=== PATIENT | male | born 1950 | race Caucasian/White ===

== ENCOUNTER 2019-08-03 08:14 | Inpatient (IN) | payer MEDICARE, BC ==
--- NOTE | 2019-08-01 12:10 | PCM.PREANE ---
<Taylor Zhao - Last Filed: 08/01/19 12:05> Preanesthetic Assessment - Anesthesia/Transfusion/Family Hx Anesthesia History: Prior Anesthesia Without Reaction Family History of Anesthesia Reaction: No Transfusion History: No Prior Transfusion(s) Intubation History: Unknown - Review of Systems Pulmonary: No Symptoms (COPD/quit smoking greater than 40 years ago/asthma: on inhaler) Cardiovascular: No Symptoms (history of elevated BP), Dyspnea on Exertion Neurological: No Symptoms (History of lower back pain) Other: Reports: None (History of prostate cancer/history of polycythemia), Thyroid Problems (hypothyroid) - Physical Assessment NPO Status Date: 08/02/19 Vital Signs: Last Vital Signs Temp 36.7 C 08/03/19 08:45 Pulse 79 08/03/19 08:45 Resp 16 08/03/19 08:45 BP 159/93 H 08/03/19 09:30 Pulse Ox 98 08/03/19 08:45 HR: SAT: RESP: BP: TEMP: Height: 1.83 m ASA Class: 3 Mental Status: Alert & Oriented x3 - Lab Values: Laboratory Last Values MRSA (PCR) Negative 07/17/19 12:00 All labs reviewed and noted and within acceptable ranges to proceed with scheduled procedure. - Imaging/EKG Impressions: EKG: NSR rate=90 with first degree AV block CXR: negative PFT's: Moderate airway obstruction, with overinflation noted. - Allergies Allergies/Adverse Reactions: Allergies Allergy/AdvReac Type Severity Reaction Status Date / Time Penicillins Allergy Cannot Verified 08/03/19 09:33 Remember - Anesthesia Plan Pre-Op Medication Ordered: None - Acknowledgements Anesthesia Type Planned: General Anesthesia (Left ISB under US guidance for post operative pain control requested by Dr. Solorzano.) Pt an Appropriate Candidate for the Planned Anesthesia: Yes Alternatives and Risks of Anesthesia Discussed w Pt/Guardian: Yes Pt/Guardian Understands and Agrees with Anesthesia Plan: Yes PreAnesthesia Questionnaire - HOME MEDS Home Medications: Home Meds Albuterol Sulfate [Proair Hfa] 2 puff INH QID PRN 08/02/19 [History] Cholecalciferol (Vitamin D3) [Vitamin D3] 5,000 unit PO DAILY 08/02/19 [History] Levothyroxine Sodium [Synthroid] 150 mcg PO DAILY 08/02/19 [History] - CURRENT (IN HOUSE) MEDS Current Meds: Current Medications Acetaminophen (Tylenol) 975 mg PO ONETIME [facility] [place] Stop: 08/03/19 14:00 Albuterol (Proventil Neb Soln) 2.5 mg NEB ONETIME PRN PRN Reason: bronchodilation Stop: 08/03/19 18:00 Aspirin (Ecotrin) 325 mg PO DAILY BETTE Bisacodyl (Dulcolax) 5 mg PO DAILY PRN PRN Reason: Constipation Cyclobenzaprine HCl (Flexeril) 10 mg PO TID PRN PRN Reason: Spasms Docusate Sodium (Colace) 100 mg PO BID BETTE Famotidine (Pepcid) 20 mg PO Q12H [facility] [place] Lactated Ringer's (Ringers, Lactated) 1,000 mls @ 125 mls/hr IV ASDIRECTED [facility] [place] Stop: 08/03/19 23:00 Last Admin: 08/03/19 09:10 Dose: 125 mls/hr Cefazolin Sodium/Dextrose 2 gm (/ Premix) 50 mls @ 100 mls/hr IV Q8H [facility] [place] Stop: 08/03/19 23:44 Ketorolac Tromethamine (Toradol) 15 mg IVPUSH Q6H PRN PRN Reason: Pain Lidocaine/Sodium Bicarbonate (Buffered Lidocaine 1% In Ns 8.4%) 0.25 ml IDERM ONETIME PRN PRN Reason: Prior to IV Start Stop: 08/03/19 18:00 Last Admin: 08/03/19 09:10 Dose: 0.25 ml Magnesium Hydroxide (Milk Of Magnesia) 30 ml PO BID PRN PRN Reason: Constipation Morphine Sulfate (Morphine) 2 mg IVPUSH Q2H PRN PRN Reason: Breakthrough Pain Naloxone HCl (Narcan) 0.1 mg IVPUSH Q5M PRN PRN Reason: Oversedation Ondansetron HCl (Zofran) 4 mg IVPUSH Q6H PRN PRN Reason: Nausea/Vomiting Oxycodone HCl (Oxycontin) 10 mg PO ONETIME [facility] [place] Stop: 08/03/19 14:00 Oxycodone HCl (Oxycodone) 5 - 10 mg PO Q4H PRN PRN Reason: Pain Pregabalin (Lyrica) 50 mg PO ONETIME [facility] [place] Stop: 08/03/19 14:00 Senna (Senna) 8.6 mg PO BID PRN PRN Reason: Constipation Sodium Chloride (Saline Flush) 10 ml FLUSH ASDIRECTED PRN PRN Reason: Keep Vein Open Stop: 08/03/19 18:00 Discontinued Medications Cefazolin Sodium (Ancef) Confirm Administered Dose 2 gm .ROUTE .STK-MED ONE Stop: 08/03/19 08:19 Fentanyl (Sublimaze) Confirm Administered Dose 100 mcg .ROUTE .STK-MED ONE Stop: 08/03/19 08:18 Fentanyl (Sublimaze) Confirm Administered Dose 100 mcg .ROUTE .STK-MED ONE Stop: 08/03/19 08:24 Lidocaine HCl (Xylocaine-Mpf 1%) Confirm Administered Dose 4 mls @ as directed .ROUTE .STK-MED ONE Stop: 08/03/19 08:19 Lidocaine HCl (Xylocaine-Mpf 1%) Confirm Administered Dose 2 mls @ as directed .ROUTE .STK-MED ONE Stop: 08/03/19 08:20 Midazolam HCl (Versed 1 Mg/Ml) Confirm Administered Dose 2 mg .ROUTE .STK-MED ONE Stop: 08/03/19 08:18 Ondansetron HCl (Zofran) Confirm Administered Dose 4 mg .ROUTE .STK-MED ONE Stop: 08/03/19 08:18 Oxycodone/Acetaminophen (Percocet 325-5 Mg) 1 - 2 tab PO Q4H PRN PRN Reason: Pain Propofol (Diprivan 20 Ml) Confirm Administered Dose 200 mg .ROUTE .STK-MED ONE Stop: 08/03/19 08:18 Rocuronium [place] (Zemuron) Confirm Administered Dose 50 mg .ROUTE .STK-MED ONE Stop: 08/03/19 08:18 <Rhoda Valdez - Last Filed: 08/03/19 10:44> Preanesthetic Assessment - Anesthesia/Transfusion/Family Hx Anesthesia History: Prior Anesthesia Without Reaction Family History of Anesthesia Reaction: No Transfusion History: No Prior Transfusion(s) Intubation History: Unknown - Review of Systems Pulmonary: No Symptoms Cardiovascular: No Symptoms Gastrointestinal: No Symptoms Neurological: No Symptoms (History of lower back pain/Neck pain with extreme extension seeing a chiropractor on occasion. ) Other: Reports: None, Thyroid Problems - Physical Assessment ASA Class: 3 Mental Status: Alert & Oriented x3 Airway Class: Mallampati = 2 Dentition: Reports: Normal Dentition Thyro-Mental Finger Breadths: 3 Mouth Opening Finger Breadths: 3 ROM/Head Extension: Full Lungs: Clear to Auscultation, Normal Respiratory Effort Cardiovascular: Regular Rate, Regular Rhythm - Anesthesia Plan Pre-Op Medication Ordered: Anxiolytic - Acknowledgements Anesthesia Type Planned: General Anesthesia Pt an Appropriate Candidate for the Planned Anesthesia: Yes Alternatives and Risks of Anesthesia Discussed w Pt/Guardian: Yes Pt/Guardian Understands and Agrees with Anesthesia Plan: Yes Additional Comments: Blood pressure is elevated with his preoperative measurements. Repeat checks ordered over 15 minutes BP has trended down to baseline clinic blood pressure 144/89.
[~2019-08-03 08:14] MED LIST: Acetaminophen 325 MG Tab PO SCH; Acetaminophen/oxyCODONE 325-5 MG Tab PO PRN; Albuterol 0.083% 2.5 MG/3 ML Neb Soln NEB PRN; Bisacodyl 5 MG Tab PO PRN; Cyclobenzaprine 10 MG Tab PO PRN; Lactated Ringers 1,000 ML IV SCH; Lidocaine 1%/Sod Bicarbonate in NS 8.4% 1 ML Syringe IDERM PRN; Magnesium Hydroxide 400 MG/5 ML Susp 30 ML Cup PO PRN; Morphine 2 MG/ML Syringe IVPUSH PRN; Naloxone 0.4 MG/ML SDV IVPUSH PRN; Ondansetron 4 MG/2 ML SDV IVPUSH PRN; Pregabalin 25 MG Cap PO SCH; Sennosides 8.6 MG Tab PO PRN; Sodium Chloride 0.9% 10 ML Syringe FLUSH PRN; oxyCODONE ER 10 MG TAB.ER PO SCH
[2019-08-03] MEDS ORDERED: EPINEPHrine 1 MG/ML SDV ONE (08:17)
[2019-08-03] MEDS ORDERED: Midazolam 1 MG/ML 2 ML SDV ONE (08:17)
[2019-08-03] MEDS ORDERED: Rocuronium 50 MG/5 ML Vial ONE (08:17)
[2019-08-03] MEDS ORDERED: fentaNYL 100 MCG/2 ML SDV ONE ×2 (08:17→08:23)
[2019-08-03] MEDS ORDERED: Propofol 200 MG/20 ML SDV ONE ×2 (08:17→10:57)
[2019-08-03] MEDS ORDERED: Ondansetron 4 MG/2 ML SDV ONE (08:17)
[2019-08-03] MEDS ORDERED: Lidocaine 1% 4 ML ONE (08:18)
[2019-08-03] MEDS ORDERED: ceFAZolin 1 GM Vial ONE ×3 (08:18→16:18)
[2019-08-03] MEDS ORDERED: Ropivacaine 0.5% 5 MG/ML 30 ML SDV ONE (08:18)
[2019-08-03] MEDS ORDERED: Lidocaine 1% 2 ML ONE (08:19)
[2019-08-03] MEDS ORDERED: Vancomycin 1 GM SDV ONE ×2 (09:03→16:18)
[2019-08-03] MEDS ORDERED: Iodine/Sodium Iodide 2% Tincture 30 ML Bottle ONE ×2 (09:04→16:18)
--- NOTE | 2019-08-03 09:58 | PCM.CONS ---
H&P History of Present Illness - General Date of Service: 08/03/19 Admit Problem/Dx: Admission Diagnosis/Problem Admission Diagnosis/Problem Osteoarthritis of shoulder Source of Information: Patient, Old Records, Provider, RN History Limitations: Reports: No Limitations - History of Present Illness Initial Comments - Free Text/Narative: Gary Kamara is a 69 yo male patient of Dr. Solorzano who is post-operative day 0 of left RTSA. Hospital medicine was consulted for post-operative medical care of the following listed medical conditions. At this time he is resting comfortably in bed. Pain is controlled. He denies any chest pain, shortness of breath, palpitations, nausea, or vomiting. He carries a history of: Hypothyroidism, ED, hypertension, hyperlipidemia, polycythemia, prostate cancer, asthma. He is a former smoker. He is a full code. His primary care provider is Dr. Kelley. Left Shoulder Pain Score (Numeric/FACES): 0 - Related Data Allergies/Adverse Reactions: Allergies Allergy/AdvReac Type Severity Reaction Status Date / Time Penicillins Allergy Cannot Verified 08/03/19 09:33 Remember Home Medications: Home Meds Albuterol Sulfate [Proair Hfa] 2 puff INH QID PRN 08/02/19 [History] Cholecalciferol (Vitamin D3) [Vitamin D3] 5,000 unit PO DAILY 08/02/19 [History] Levothyroxine Sodium [Synthroid] 150 mcg PO DAILY 08/02/19 [History] Past Medical History HEENT History: Reports: Impaired Vision, Sinusitis, Other (See Below) Other HEENT History: impacted cerumen Cardiovascular History: Reports: None Respiratory History: Reports: Asthma, Other (See Below) Other Respiratory History: URI Genitourinary History: Reports: Other (See Below) Other Genitourinary History: erectile dysfunction UNIT TENDER History: Reports: None Musculoskeletal History: Reports: Other (See Below) Other Musculoskeletal History: left arm pain, left shoulder pain, SI joint pain Neurological History: Reports: None Psychiatric History: Reports: None Endocrine/Metabolic History: Reports: None Hematologic History: Reports: Hemochromatosis, Polycythemia Immunologic History: Reports: None Oncologic (Cancer) History: Reports: Prostate Dermatologic History: Reports: Other (See Below) Other Dermatologic History: dysplastic nevi - Past Surgical History Head Surgeries/Procedures: Reports: None HEENT Surgical History: Reports: Cataract Surgery, Laser Surgery Cardiovascular Surgical History: Reports: None Respiratory Surgical History: Reports: None GI Surgical History: Reports: Colonoscopy Female Surgical History: Reports: None Male Surgical History: Reports: None Endocrine Surgical History: Reports: None Neurological Surgical History: Reports: None Musculoskeletal Surgical History: Reports: None Oncologic Surgical History: Reports: None Social & Family History - Tobacco Use Smoking Status *Q: Former Smoker Packs/Tins Daily: 197 Used Tobacco, but Quit: Yes Month/Year Tobacco Last Used: 1974 - Caffeine Use Caffeine Use: Reports: None - Recreational Drug Use Recreational Drug Use: No H&P Review of Systems - Review of Systems: Review Of Systems: See Below General: Reports: Malaise, Diaphoresis. Denies: Fever, Chills HEENT: Reports: No Symptoms. Denies: Headaches, Sore Throat Pulmonary: Reports: No Symptoms. Denies: Shortness of Breath, Wheezing, Cough, Sputum Cardiovascular: Reports: No Symptoms. Denies: Chest Pain, Edema, Syncope Gastrointestinal: Reports: No Symptoms. Denies: Abdominal Pain, Constipation, Diarrhea, Nausea, Vomiting Genitourinary: Reports: Frequency. Denies: Pain Musculoskeletal: Reports: Shoulder Pain Skin: Reports: No Symptoms. Denies: Cyanosis Psychiatric: Reports: No Symptoms. Denies: Confusion Neurological: Reports: Dizziness. Denies: Difficulty Walking, Gait Disturbance Hematologic/Lymphatic: Reports: No Symptoms Immunologic: Reports: No Symptoms Exam - Exam Exam: See Below - Vital Signs Vital Signs: Last Vital Signs Temp 98.1 F 08/03/19 08:45 Pulse 79 08/03/19 08:45 Resp 16 08/03/19 08:45 BP 159/93 H 08/03/19 09:30 Pulse Ox 98 08/03/19 08:45 Weight: 217 lb - Exam Quality Assessment: Supplemental Oxygen (2L), DVT Prophylaxis General: Alert, Oriented, Cooperative, Other (tired ). No: Mild Distress HEENT: Conjunctiva Clear, EACs Clear, Hearing Intact, Mucosa Moist & [place], Nares Patent, PERRLA Neck: Supple, Trachea Midline Lungs: Clear to Auscultation, Normal Respiratory Effort, Decreased Breath Sounds , Other (Poor inspiratory effort ) Cardiovascular: Regular Rate, Regular Rhythm GI/Abdominal Exam: Normal Bowel Sounds, Soft, Non-Tender, No Organomegaly, No Distention (Male) Exam: Deferred Rectal (Males) Exam: Deferred Extremities: Normal Capillary Refill, Arm Pain (Shoulder ), Limited Range of Motion, Other (Bandage in place on left shoulder. Bandage is dry and intact. Cooling pack in place. ) Peripheral Pulses: 4+: Radial (L), Radial (R), Dorsalis Pedis (L), Dorsalis Pedis (R) Skin: Warm, Dry, Intact Neurological: Cranial Nerves Intact (Grossly ) Neuro Extensive - Mental Status: Alert, Oriented x3, Normal Mood/Affect Sepsis Event Note - Evaluation Sepsis Screening Result: No Definite Risk - Focused Exam Vital Signs: Vital Signs Temp Pulse Resp BP Pulse Ox 08/03/19 09:30 159/93 H 08/03/19 09:20 175/109 H 08/03/19 09:00 175/113 H 08/03/19 08:45 98.1 F 79 16 158/108 H 98 Date Exam was Performed: 08/03/19 Time Exam was Performed: 15:07 Consult PN Assessment/Plan POD#: 0 (1) S/p reverse total shoulder arthroplasty SNOMED Code(s): 898200874, 778026815 Code(s): Z96.619 - PRESENCE OF UNSPECIFIED ARTIFICIAL SHOULDER JOINT Priority: High Current Visit: Yes Qualifiers: Laterality: left Qualified Code(s): Z96.612 - Presence of left artificial shoulder joint (2) Osteoarthritis SNOMED Code(s): 380630323 Code(s): M19.90 - UNSPECIFIED OSTEOARTHRITIS, UNSPECIFIED SITE Priority: High Current Visit: Yes Qualifiers: Osteoarthritis location: shoulder Osteoarthritis type: primary Laterality : left Qualified Code(s): M19.012 - Primary osteoarthritis, left shoulder (3) Hypothyroidism SNOMED Code(s): 51980293 Code(s): E03.9 - HYPOTHYROIDISM, UNSPECIFIED Priority: Low Current Visit : No Qualifiers: Hypothyroidism type: unspecified Qualified Code(s): E03.9 - Hypothyroidism , unspecified (4) Erectile dysfunction SNOMED Code(s): 245363194 Code(s): N52.9 - MALE ERECTILE DYSFUNCTION, UNSPECIFIED Priority: Low Current Visit: No Qualifiers: Erectile dysfunction type: unspecified Qualified Code(s): N52.9 - Male erectile dysfunction, unspecified (5) HTN (hypertension) SNOMED Code(s): 30455524 Code(s): I10 - ESSENTIAL (PRIMARY) HYPERTENSION Priority: Medium Current Visit: No Qualifiers: Hypertension type: unspecified Qualified Code(s): I10 - Essential (primary ) hypertension (6) HLD (hyperlipidemia) SNOMED Code(s): 13632314 Code(s): E78.5 - HYPERLIPIDEMIA, UNSPECIFIED Priority: Low Current Visit : No (7) Polycythemia SNOMED Code(s): 762668819 Code(s): D75.1 - SECONDARY POLYCYTHEMIA Priority: Low Current Visit: No (8) History of prostate cancer SNOMED Code(s): 730019870 Code(s): Z85.46 - PERSONAL HISTORY OF MALIGNANT NEOPLASM OF PROSTATE Priority: Low Current Visit: No (9) Asthma SNOMED Code(s): 039165862 Code(s): J45.909 - UNSPECIFIED ASTHMA, UNCOMPLICATED Priority: Medium Current Visit: No Qualifiers: Asthma complication type: unspecified (10) COPD (chronic obstructive pulmonary disease) SNOMED Code(s): 54569829 Code(s): J44.9 - CHRONIC OBSTRUCTIVE PULMONARY DISEASE, UNSPECIFIED Priority: Medium Current Visit: No Qualifiers: COPD type: unspecified COPD Qualified Code(s): J44.9 - Chronic obstructive pulmonary disease, unspecified (11) Postoperative hypertension SNOMED Code(s): 1000253929673 Code(s): I97.3 - POSTPROCEDURAL HYPERTENSION Priority: High Current Visit : Yes Problem List Initiated/Reviewed/Updated: Yes Plan: I/P: Acute: S/P left reverse total shoulder arthroplasty - post-operative day 0 -DVT prophylaxis and pain management per primary care team -PT/OT -IS/RT -Monitor oxygen saturation -Titrate oxygen as needed -Home medications reviewed -Vital signs stable -Monitor labs -Pre-operative Hgb was 17.8 -Pre-operative GFR was 60 Osteoarthritis of left shoulder -Pain management per primary care team Post-operative malignant hypertension -BP 170's-190's systolic in recovery room -Received 2L of fluids in surgery -Given 20 mg Lasix IV push and 10 mg IV push labetalol without response -Ultimately started on 0.1mg catapress and a nicardipine drip -Patient will be upgraded to ICU status -Telemetry Chronic: Hypothyroidism ED hypertension hyperlipidemia polycythemia prostate cancer asthma Plan: CM for discharge planning GI prophylaxis Home medications as indicated Other orders as listed above Routine AM labs He is a full code. His PCP is Dr. Kelley Thank you for allowing us to participate in the care of this patient!! Requesting Provider: Dr. Solorzano Date Consult Requested: 08/03/19 Patient History Reviewed: Yes Admission H&P Reviewed: Yes
[2019-08-03] MEDS ORDERED: Albuterol 0.083% 2.5 MG/3 ML Neb Soln ONE (10:02)
[2019-08-03] MEDS ORDERED: Dexamethasone 4 MG/ML 5 ML MDV ONE (11:16)
[2019-08-03] MEDS ORDERED: HYDROmorphone 0.5 MG/0.5 ML Syringe ONE (11:17)
[2019-08-03] MEDS ORDERED: ePHEDrine/Normal Saline 25 MG/5 ML Syringe ONE (11:40)
[2019-08-03] MEDS ORDERED: Lactated Ringers 1,000 ML ONE ×2 (11:55→12:46)
[2019-08-03] MEDS ORDERED: Ondansetron 4 MG/2 ML SDV IVPUSH PRN ×2 (12:04→17:04)
[2019-08-03] MEDS ORDERED: fentaNYL 100 MCG/2 ML SDV IVPUSH PRN (12:04)
--- NOTE | 2019-08-03 12:04 | PCM.SN ---
- Free Text/Narrative Note: Anesthesia Procedure Note: (Interscalene Block Note) Date: 08/03/2018 Time Out: 1015 Start: 1027 Stop: 1032 Current Procedure: Left Interscalene Block under US guidance for postoperative pain control requested by Dr. Solorzano. Patient chart reviewed, risk/benefits discussed with patient, consent obtained. Patient positioned supine, monitors/alarms on, oxygen placed via nasal cannula at 2 LPM. Left shoulder prepped with two chloropreps. Sterile drapes placed with aseptic technique noted. Under US guidance right subclavian artery visualized along with the left brachial plexus. Plexus followed up to C6 cricoid level, and area localized with 1mls of 1% lidocaine. 22gauge 2 inch stimiplex needle advanced under US with 0.6mV with stimulation of biceps noted. Good stimulation noted with decreased voltage and absent at 0.2mVs. 1ml of Normal Saline injected with loss of stimulation noted to confirm needle not placed intraneurally. Incremental dosing of 5mls with negative aspiration noted prior to each injection of 0.5% ropivacaine with 1:200,000 epinephrine. Total volume=30mls. Mr. Molina tolerated the procedure well. No complications were noted. Vital signs stable throughout the procedure. See Nursing Notes for vital signs. Vital signs stable throughout. Paula Valdez CRNA
[2019-08-03] MEDS ORDERED: Ketorolac 30 MG/ML SDV ONE (12:46)
[2019-08-03] MEDS ORDERED: ALBUTEROL SULFATE INH PRN (12:53)
--- NOTE | 2019-08-03 13:14 | PCM.POSTAN ---
POST ANESTHESIA ASSESSMENT - MENTAL STATUS Mental Status: Alert, Oriented - VITAL SIGNS Vital Signs: Last Vital Signs 1305 154/87 69 13 97% 97.6F - RESPIRATORY Respiratory Status: Respiratory Rate WNL, Airway Patent, O2 Saturation Stable, Supplemental Oxygen - CARDIOVASCULAR CV Status: Pulse Rate WNL, Blood Pressure Stable - GASTROINTESTINAL GI Status: No Symptoms - PAIN Pain Score: 0 - POST OP HYDRATION Hydration Status: Adequate & Stable
[2019-08-03] MEDS: HYDROmorphone 0.5 MG/0.5 ML Syringe IVPUSH PRN ×2 (13:30→13:44)
[2019-08-03] MEDS ORDERED: Labetalol 100 MG/20 ML MDV IVPUSH ONE (13:48)
[2019-08-03] MEDS ORDERED: Furosemide 40 MG/4 ML VIAL IVPUSH ONE (13:48)
[2019-08-03] MEDS ORDERED: Furosemide 20 MG/2 ML VIAL IVPUSH ONE (14:00)
[2019-08-03] MEDS ORDERED: hydrALAZINE 20 MG/ML SDV IVPUSH PRN (14:05)
[2019-08-03] MEDS ORDERED: cloNIDine 0.1 MG Tab PO ONE ×2 (14:24→15:28)
--- NOTE | 2019-08-03 14:29 | PCM.SN ---
- Free Text/Narrative Note: Patient developed post operative malignant hypertension. He received a total of 2L of crystalloids during surgery. He was unresponsive to initial treatment of one timd dose of IV Lasix 20 mg and Labetolol 10 mg. He is otherwise clinically stable. Will get him to the unit and start Nicardipin gtt plus clonidine 0.1 mg po x1 now. ICU nurse has been notified for the incoming surgical patient.
[2019-08-03] MEDS ORDERED: niCARdipine HCl 25 MG in Sodium Chloride 0.9% 250 ML IV SCH (14:30)
[2019-08-03] MEDS ORDERED: Ketorolac 15 MG/ML SDV IVPUSH PRN (15:00)
[2019-08-03] MEDS ORDERED: Albuterol/Ipratropium 3.0-0.5 MG/3 ML Neb Soln NEB PRN (15:15)
--- NOTE | 2019-08-03 15:29 | CR ---
Left shoulder: Single AP view of the left shoulder was obtained. Study shows left shoulder prosthesis which is of the reverse type. Underlying bony structures are intact. Impression: 1. Recently placed left shoulder prosthesis. 2. No acute bony abnormality is identified on this one view study. Diagnostic code #2 This report was dictated in [place] Standard Time
--- NOTE | 2019-08-03 15:29 | CR ---
Left shoulder: Single fluoroscopic spot view of the left shoulder was obtained utilizing C-arm device. Study shows a reverse left shoulder prosthesis. No discrete underlying bony abnormality is seen. Alignment of the prosthesis is normal. Fluoroscopy time is given as 1.0 seconds. Impression: 1. Procedural study as noted above. Diagnostic code #2 This report was dictated in [place] Standard Time
[2019-08-03] MEDS: ceFAZolin 2 GM in Premix Bag 1 BAG IV SCH ×2 (16:37→23:38)
[2019-08-03] MEDS ORDERED: Lactated Ringers 1,000 ML IV SCH (16:45)
[2019-08-03] MEDS: Famotidine 20 MG Tab PO SCH (22:15)
[2019-08-03] MEDS: Docusate Sodium 100 MG Cap PO SCH (22:15)
[2019-08-04] MEDS: oxyCODONE 5 MG Tab PO PRN ×3 (00:22→12:04)
[2019-08-04] MEDS ORDERED: Levothyroxine 75 MCG Tab PO SCH (06:00)
--- NOTE | 2019-08-04 07:03 | PCM.CONSN ---
- General Info Date of Service: 08/04/19 Admission Dx/Problem (Free Text): Admission Diagnosis/Problem Admission Diagnosis/Problem Osteoarthritis of shoulder Functional Status: Reports: Pain Controlled, Tolerating Diet, Ambulating, Urinating, Incentive Spirometry. Denies: New Symptoms - Review of Systems General: Reports: No Symptoms. Denies: Fever, Chills HEENT: Reports: No Symptoms. Denies: Headaches, Sore Throat Pulmonary: Reports: Shortness of Breath (mild chronic and at baseline ), Cough ( mild chronic ). Denies: Sputum, Wheezing Cardiovascular: Reports: No Symptoms. Denies: Chest Pain, Palpitations, Dyspnea on Exertion Gastrointestinal: Reports: No Symptoms. Denies: Abdominal Pain, Constipation, Diarrhea, Nausea, Vomiting Genitourinary: Reports: No Symptoms. Denies: Pain Musculoskeletal: Reports: Shoulder Pain (left) Skin: Reports: No Symptoms. Denies: Cyanosis Neurological: Reports: No Symptoms. Denies: Pre-Existing Deficit, Difficulty Walking, Gait Disturbance Psychiatric: Reports: No Symptoms - Patient Data Vitals - Most Recent: Last Vital Signs Temp 98.2 F 08/04/19 04:00 Pulse 93 08/04/19 04:00 Resp 12 08/04/19 04:00 BP 111/76 08/04/19 04:00 Pulse Ox 91 L 08/04/19 04:00 Weight - Most Recent: 223 lb 6.4 oz I&O - Last 24 Hours: Intake & Output 08/03/19 08/03/19 08/04/19 14:59 22:59 06:59 Intake Total 50 Output Total 800 250 Balance -800 -200 Lab Results Last 24 Hours: Laboratory Results - last 24 hr 08/04/19 08/04/19 Range/Units 05:44 05:44 WBC 22.69 H (4.23-9.07) K/mm3 RBC 5.32 (4.63-6.08) M/mm3 Hgb 15.3 (13.7-17.5) gm/dl Hct 47.2 (40.1-51.0) % MCV 88.7 (79.0-92.2) fl MCH 28.8 (25.7-32.2) pg MCHC 32.4 (32.2-35.5) g/dl RDW Std Deviation 48.9 H (35.1-43.9) fL Plt Count 268 (163-337) K/mm3 MPV 10.7 (9.4-12.3) fl Sodium 138 (136-145) mEq/L Potassium 3.9 (3.5-5.1) mEq/L Chloride 102 (98-107) mEq/L Carbon Dioxide 24 (21-32) mEq/L Anion Gap 15.9 H (5-15) BUN 21 H (7-18) mg/dL Creatinine 1.1 (0.7-1.3) mg/dL Est Cr Clr Drug Dosing 67.50 mL/min Estimated GFR (MDRD) > 60 (>60) mL/min BUN/Creatinine Ratio 19.1 H (14-18) Glucose 157 H (80-115) mg/dL Calcium 8.4 L (8.5-10.1) mg/dL Total Bilirubin 0.8 (0.2-1.0) mg/dL AST 17 (15-37) U/L ALT 39 (16-63) U/L Alkaline Phosphatase 42 L (46-116) U/L Total Protein 6.4 (6.4-8.2) g/dl Albumin 2.8 L (3.4-5.0) g/dl Globulin 3.6 gm/dL Albumin/Globulin Ratio 0.8 L (1-2) Med Orders - Current: Current Medications Albuterol/Ipratropium (Duoneb 3.0-0.5 Mg/3 Ml) 3 ml NEB Q6HRRT PRN PRN Reason: wheezing/SOB/cough Aspirin (Ecotrin) 325 mg PO DAILY [facility] Bisacodyl (Dulcolax) 5 mg PO DAILY PRN PRN Reason: Constipation Cholecalciferol (Vitamin D3) 5,000 unit PO DAILY [facility] Cyclobenzaprine HCl (Flexeril) 10 mg PO TID PRN PRN Reason: Spasms Last Admin: 08/04/19 00:21 Dose: 10 mg Docusate Sodium (Colace) 100 mg PO BID [facility] Last Admin: 08/03/19 22:15 Dose: 100 mg Famotidine (Pepcid) 20 mg PO Q12H [facility] Last Admin: 08/03/19 22:15 Dose: 20 mg Hydralazine HCl (Apresoline) 20 mg IVPUSH Q4H PRN PRN Reason: Hypertension Last Admin: 08/03/19 14:29 Dose: 20 mg Cefazolin Sodium/Dextrose 2 gm (/ Premix) 50 mls @ 100 mls/hr IV Q8H BETTE Stop: 08/04/19 08:59 Last Admin: 08/03/19 23:38 Dose: 100 mls/hr Nicardipine HCl 25 mg/ Sodium (Chloride) 260 mls @ 52 mls/hr IV TITRATE BETTE; Protocol Ketorolac Tromethamine (Toradol) 15 mg IVPUSH Q6H PRN PRN Reason: Pain Last Admin: 08/03/19 23:36 Dose: 15 mg Levothyroxine Sodium (Levothyroxine) 150 mcg PO ACBREAKFAST BETTE Last Admin: 08/04/19 05:54 Dose: 150 mcg Morphine Sulfate (Morphine) 2 mg IVPUSH Q2H PRN PRN Reason: Breakthrough Pain Naloxone HCl (Narcan) 0.1 mg IVPUSH Q5M PRN PRN Reason: Oversedation Non-Formulary Medication (Albuterol Sulfate [Proair Hfa]) 2 puff INH QID PRN PRN Reason: asthma Ondansetron HCl (Zofran) 4 mg IVPUSH Q6H PRN PRN Reason: Nausea/Vomiting Last Admin: 08/03/19 17:12 Dose: 4 mg Oxycodone HCl (Oxycodone) 5 - 10 mg PO Q4H PRN PRN Reason: Pain Last Admin: 08/04/19 05:57 Dose: 5 mg Senna (Senna) 8.6 mg PO BID PRN PRN Reason: Constipation Discontinued Medications Acetaminophen (Tylenol) 975 mg PO ONETIME BETTE Stop: 08/03/19 14:00 Last Admin: 08/03/19 10:17 Dose: 975 mg Albuterol (Proventil Neb Soln) 2.5 mg NEB ONETIME PRN PRN Reason: bronchodilation Stop: 08/03/19 18:00 Albuterol (Proventil Neb Soln) Confirm Administered Dose 2.5 mg .ROUTE .STK-MED ONE Stop: 08/03/19 10:03 Last Admin: 08/03/19 10:07 Dose: 2.5 mg Cefazolin Sodium (Ancef) Confirm Administered Dose 2 gm .ROUTE .STK-MED ONE Stop: 08/03/19 08:19 Cefazolin Sodium (Ancef) Confirm Administered Dose 2 gm .ROUTE .STK-MED ONE Stop: 08/03/19 16:19 Clonidine HCl (Catapres) 0.1 mg PO ONETIME ONE Stop: 08/03/19 14:25 Last Admin: 08/03/19 14:36 Dose: 0.1 mg Clonidine HCl (Catapres) 0.1 mg PO ONETIME ONE Stop: 08/03/19 15:29 Last Admin: 08/03/19 18:13 Dose: Not Given Dexamethasone (Dexamethasone) Confirm Administered Dose 20 mg .ROUTE .STK-MED ONE Stop: 08/03/19 11:17 Ephedrine Sulfate (Ephedrine In Ns) Confirm Administered Dose 25 mg .ROUTE .STK- MED ONE Stop: 08/03/19 11:41 Fentanyl (Sublimaze) Confirm Administered Dose 100 mcg .ROUTE .STK-MED ONE Stop: 08/03/19 08:18 Fentanyl (Sublimaze) Confirm Administered Dose 100 mcg .ROUTE .STK-MED ONE Stop: 08/03/19 08:24 Fentanyl (Sublimaze) 50 mcg IVPUSH Q5M PRN PRN Reason: Pain Stop: 08/03/19 18:00 Last Admin: 08/03/19 13:25 Dose: 50 mcg Furosemide (Lasix) 20 mg IVPUSH NOW ONE Stop: 08/03/19 13:49 Last Admin: 08/03/19 16:12 Dose: Not Given Furosemide (Lasix) 20 mg IVPUSH NOW ONE Stop: 08/03/19 14:01 Last Admin: 08/03/19 14:01 Dose: 20 mg Glycopyrrolate () Confirm Administered Dose 1 mg .ROUTE .STK-MED ONE Stop: 08/03/19 12:48 Hydromorphone HCl (Dilaudid) Confirm Administered Dose 0.5 mg .ROUTE .STK-MED ONE Stop: 08/03/19 11:18 Hydromorphone HCl (Dilaudid) 0.5 mg IVPUSH Q10M PRN PRN Reason: Pain (severe 7-10) Stop: 08/03/19 18:00 Last Admin: 08/03/19 13:44 Dose: 0.5 mg Lactated Ringer's (Ringers, Lactated) 1,000 mls @ 125 mls/hr IV ASDIRECTED BETTE Stop: 08/03/19 23:00 Last Admin: 08/03/19 09:10 Dose: 125 mls/hr Lidocaine HCl (Xylocaine-Mpf 1%) Confirm Administered Dose 4 mls @ as directed .ROUTE .[facility] ONE Stop: 08/03/19 08:19 Lidocaine HCl (Xylocaine-Mpf 1%) Confirm Administered Dose 2 mls @ as directed .ROUTE .[facility] ONE Stop: 08/03/19 08:20 Lactated Ringer's (Ringers, Lactated) Confirm Administered Dose 1,000 mls @ as directed .ROUTE .[facility] ONE Stop: 08/03/19 11:56 Lactated Ringer's (Ringers, Lactated) Confirm Administered Dose 1,000 mls @ as directed .ROUTE .[facility] ONE Stop: 08/03/19 12:47 Lactated Ringer's (Ringers, Lactated) 1,000 mls @ 125 mls/hr IV ASDIRECTED [facility] Iodine (Iodine 2% Mild Tincture) Confirm Administered Dose 30 ml .ROUTE .[facility] ONE Stop: 08/03/19 16:19 Ketorolac Tromethamine (Toradol) Confirm Administered Dose 30 mg .ROUTE .[facility] ONE Stop: 08/03/19 12:47 Labetalol HCl (Normodyne) 10 mg IVPUSH ONETIME ONE; Protocol Stop: 08/03/19 13:49 Last Admin: 08/03/19 13:58 Dose: 10 mg Lidocaine/Sodium Bicarbonate (Buffered Lidocaine 1% In Ns 8.4%) 0.25 ml IDERM ONETIME PRN PRN Reason: Prior to IV Start Stop: 08/03/19 18:00 Last Admin: 08/03/19 09:10 Dose: 0.25 ml Magnesium Hydroxide (Milk Of Magnesia) 30 ml PO BID PRN PRN Reason: Constipation Midazolam HCl (Versed 1 Mg/Ml) Confirm Administered Dose 2 mg .ROUTE .[facility] ONE Stop: 08/03/19 08:18 Ondansetron HCl (Zofran) 4 mg IVPUSH Q6H PRN PRN Reason: Nausea/Vomiting Ondansetron HCl (Zofran) Confirm Administered Dose 4 mg .ROUTE .[facility] ONE Stop: 08/03/19 08:18 Ondansetron HCl (Zofran) 4 mg IVPUSH ONETIME PRN PRN Reason: Nausea/Vomiting Stop: 08/03/19 18:00 Oxycodone HCl (Oxycontin) 10 mg PO ONETIME [facility] Stop: 08/03/19 14:00 Last Admin: 08/03/19 10:17 Dose: 10 mg Oxycodone/Acetaminophen (Percocet 325-5 Mg) 1 - 2 tab PO Q4H PRN PRN Reason: Pain Pregabalin (Lyrica) 50 mg PO ONETIME [facility] Stop: 08/03/19 14:00 Last Admin: 08/03/19 10:17 Dose: 50 mg Propofol (Diprivan 20 Ml) Confirm Administered Dose 200 mg .ROUTE .STK-MED ONE Stop: 08/03/19 08:18 Propofol (Diprivan 20 Ml) Confirm Administered Dose 200 mg .ROUTE .STK-MED ONE Stop: 08/03/19 10:58 Rocuronium [place] (Zemuron) Confirm Administered Dose 50 mg .ROUTE .STK-MED ONE Stop: 08/03/19 08:18 Sodium Chloride (Saline Flush) 10 ml FLUSH ASDIRECTED PRN PRN Reason: Keep Vein Open Stop: 08/03/19 18:00 Tranexamic Acid (Cyklokapron) Confirm Administered Dose 1,000 mg .ROUTE .STK- MED ONE Stop: 08/03/19 16:19 Vancomycin HCl (Vancomycin) Confirm Administered Dose 1 gm .ROUTE .STK-MED ONE Stop: 08/03/19 16:19 - Exam Quality Assessment: DVT Prophylaxis General: Alert, Oriented, Cooperative, No Acute Distress HEENT: Pupils Equal, Pupils Reactive, Mucous Membr. Moist/[place] Neck: Supple, Trachea Midline Lungs: Clear to Auscultation, Normal Respiratory Effort, Decreased Breath Sounds Cardiovascular: Regular Rate, Regular Rhythm GI/Abdominal Exam: Normal Bowel Sounds, Soft, Non-Tender, No Distention, No Abnormal Bruit (Male) Exam: Deferred Back Exam: Normal Inspection, Full Range of Motion Extremities: Normal Capillary Refill, Arm Pain (left shoulder ), Limited Range of Motion, Other (Bandage in place on left shoulder. Sling and swathe in place. Cooling pack in place.) Peripheral Pulses: 2+: Radial (L), Radial (R), Dorsalis Pedis (L), Dorsalis Pedis (R) Skin: Warm, Dry, Intact Wound/Incisions: Dressing Dry and Intact Neurological: No New Focal Deficit Psy/Mental Status: Alert, Normal Affect, Normal Mood Sepsis Event Note - Evaluation Sepsis Screening Result: No Definite Risk - Focused Exam Vital Signs: Vital Signs Temp Pulse Resp BP Pulse Ox Pulse Ox 08/04/19 04:00 98.2 F 93 12 111/76 91 L 08/04/19 00:00 99.1 F 98 12 133/91 H 92 L 08/03/19 20:45 94 L 08/03/19 19:53 97.7 F 99 12 139/94 H 94 L Date Exam was Performed: 08/04/19 Time Exam was Performed: 12:31 Consult PN Assessment/Plan POD#: 1 (1) S/p reverse total shoulder arthroplasty SNOMED Code(s): 377499153, 609254836 Code(s): Z96.619 - PRESENCE OF UNSPECIFIED ARTIFICIAL SHOULDER JOINT Priority: High Current Visit: Yes Qualifiers: Laterality: left Qualified Code(s): Z96.612 - Presence of left artificial shoulder joint (2) Osteoarthritis SNOMED Code(s): 899297777 Code(s): M19.90 - UNSPECIFIED OSTEOARTHRITIS, UNSPECIFIED SITE Priority: High Current Visit: Yes Qualifiers: Osteoarthritis location: shoulder Osteoarthritis type: primary Laterality : left Qualified Code(s): M19.012 - Primary osteoarthritis, left shoulder (3) Hypothyroidism SNOMED Code(s): 29170700 Code(s): E03.9 - HYPOTHYROIDISM, UNSPECIFIED Priority: Low Current Visit : No Qualifiers: Hypothyroidism type: unspecified Qualified Code(s): E03.9 - Hypothyroidism , unspecified (4) Erectile dysfunction SNOMED Code(s): 980018932 Code(s): N52.9 - MALE ERECTILE DYSFUNCTION, UNSPECIFIED Priority: Low Current Visit: No Qualifiers: Erectile dysfunction type: unspecified Qualified Code(s): N52.9 - Male erectile dysfunction, unspecified (5) HTN (hypertension) SNOMED Code(s): 48169706 Code(s): I10 - ESSENTIAL (PRIMARY) HYPERTENSION Priority: Medium Current Visit: No Qualifiers: Hypertension type: unspecified Qualified Code(s): I10 - Essential (primary ) hypertension (6) HLD (hyperlipidemia) SNOMED Code(s): 78438944 Code(s): E78.5 - HYPERLIPIDEMIA, UNSPECIFIED Priority: Low Current Visit : No (7) Polycythemia SNOMED Code(s): 350648214 Code(s): D75.1 - SECONDARY POLYCYTHEMIA Priority: Low Current Visit: No (8) History of prostate cancer SNOMED Code(s): 030445383 Code(s): Z85.46 - PERSONAL HISTORY OF MALIGNANT NEOPLASM OF PROSTATE Priority: Low Current Visit: No (9) Asthma SNOMED Code(s): 829799884 Code(s): J45.909 - UNSPECIFIED ASTHMA, UNCOMPLICATED Priority: Medium Current Visit: No Qualifiers: Asthma complication type: unspecified (10) COPD (chronic obstructive pulmonary disease) SNOMED Code(s): 73941714 Code(s): J44.9 - CHRONIC OBSTRUCTIVE PULMONARY DISEASE, UNSPECIFIED Priority: Medium Current Visit: No Qualifiers: COPD type: unspecified COPD Qualified Code(s): J44.9 - Chronic obstructive pulmonary disease, unspecified (11) Postoperative hypertension SNOMED Code(s): 5177440167067 Code(s): I97.3 - POSTPROCEDURAL HYPERTENSION Priority: High Current Visit : Yes Problem List Initiated/Reviewed/Updated: Yes My Orders Last 24 Hours: My Active Orders 08/03/19 14:43 Patient Status [ADT] Routine 08/03/19 15:15 RT Aerosol Therapy [RC] ASDIRECTED Albuterol/Ipratropium [DuoNeb 3.0-0.5 MG/3 ML] 3 ml NEB Q6HRRT PRN Plan: I/P: Acute: S/P left reverse total shoulder arthroplasty - post-operative day 1 -DVT prophylaxis and pain management per primary care team -PT/OT -IS/RT -Monitor oxygen saturation -Titrate oxygen as needed -Home medications reviewed -Vital signs stable -Monitor labs -Pre-operative Hgb was 17.8; Now 15.3 -Pre-operative GFR was 60; Now >60 Osteoarthritis of left shoulder -Pain management per primary care team Post-operative malignant hypertension -BP 170's-190's systolic in recovery room -Received 2L of fluids in surgery -Given 20 mg Lasix IV push and 10 mg IV push labetalol without response -Ultimately started on 0.1mg catapress. Nicardipine drip ordered but never started/needed -Patient will be upgraded to ICU status -Telemetry -Patient reports baseline BP of 140-150 systolic -Start losartan 25mg -Follow-up with PCP within 7-10 days of discharge Chronic: Hypothyroidism ED hypertension hyperlipidemia polycythemia prostate cancer asthma Plan: CM for discharge planning GI prophylaxis Home medications as indicated Other orders as listed above Routine AM labs He is a full code. His PCP is Dr. Kelley From a hospitalist standpoint Gary is doing pretty well today. Pain is controlled. His BP has been controlled 120's-130's systolic with treatment. We started him on losartan 25mg with good response. He has not needed any other BP control meds since yesterday evening. He has been up working with PT/OT and ambulating. He is off of oxygen and has urinated. No nursing or patient concerns. His WBC is increased at 22.69. We discussed this and how it is likely a stress reaction from stress/HTN. He denies any infectious symptoms. He was instructed to seek care with his PCP or an ED should symptoms develop. His labs and vital signs otherwise remain stable. He is cleared for discharge pending primary team and PT/OT agreement. Thank you for allowing us to participate in the care of this patient!!
--- NOTE | 2019-08-04 08:15 | PCM.SURGPN ---
- General Info Date of Service: 08/04/19 POD#: 1 Functional Status: Reports: Pain Controlled, Tolerating Diet, Ambulating, Urinating, Incentive Spirometry, Other (The pt states he is doing well.) - Patient Data Vitals - Most Recent: Last Vital Signs Temp 98.2 F 08/04/19 04:00 Pulse 93 08/04/19 04:00 Resp 12 08/04/19 04:00 BP 111/76 08/04/19 04:00 Pulse Ox 91 L 08/04/19 04:00 Weight - Most Recent: 223 lb 6.4 oz I&O - Last 24 Hours: Intake & Output 08/03/19 08/04/19 08/04/19 22:59 06:59 14:59 Intake Total 50 Output Total 800 250 Balance -800 -200 Lab Results Last 24 Hrs: Laboratory Results - last 24 hr 08/04/19 08/04/19 Range/Units 05:44 05:44 WBC 22.69 H (4.23-9.07) K/mm3 RBC 5.32 (4.63-6.08) M/mm3 Hgb 15.3 (13.7-17.5) gm/dl Hct 47.2 (40.1-51.0) % MCV 88.7 (79.0-92.2) fl MCH 28.8 (25.7-32.2) pg MCHC 32.4 (32.2-35.5) g/dl RDW Std Deviation 48.9 H (35.1-43.9) fL Plt Count 268 (163-337) K/mm3 MPV 10.7 (9.4-12.3) fl Sodium 138 (136-145) mEq/L Potassium 3.9 (3.5-5.1) mEq/L Chloride 102 (98-107) mEq/L Carbon Dioxide 24 (21-32) mEq/L Anion Gap 15.9 H (5-15) BUN 21 H (7-18) mg/dL Creatinine 1.1 (0.7-1.3) mg/dL Est Cr Clr Drug Dosing 67.50 mL/min Estimated GFR (MDRD) > 60 (>60) mL/min BUN/Creatinine Ratio 19.1 H (14-18) Glucose 157 H (80-115) mg/dL Calcium 8.4 L (8.5-10.1) mg/dL Total Bilirubin 0.8 (0.2-1.0) mg/dL AST 17 (15-37) U/L ALT 39 (16-63) U/L Alkaline Phosphatase 42 L (46-116) U/L Total Protein 6.4 (6.4-8.2) g/dl Albumin 2.8 L (3.4-5.0) g/dl Globulin 3.6 gm/dL Albumin/Globulin Ratio 0.8 L (1-2) Med Orders - Current: Current Medications Albuterol/Ipratropium (Duoneb 3.0-0.5 Mg/3 Ml) 3 ml NEB Q6HRRT PRN PRN Reason: wheezing/SOB/cough Amlodipine Besylate (Norvasc) 5 mg PO DAILY [facility] Aspirin (Ecotrin) 325 mg PO DAILY [facility] Bisacodyl (Dulcolax) 5 mg PO DAILY PRN PRN Reason: Constipation Cholecalciferol (Vitamin D3) 5,000 unit PO DAILY [facility] Cyclobenzaprine HCl (Flexeril) 10 mg PO TID PRN PRN Reason: Spasms Last Admin: 08/04/19 00:21 Dose: 10 mg Docusate Sodium (Colace) 100 mg PO BID [facility] Last Admin: 08/03/19 22:15 Dose: 100 mg Famotidine (Pepcid) 20 mg PO Q12H [facility] Last Admin: 08/03/19 22:15 Dose: 20 mg Hydralazine HCl (Apresoline) 20 mg IVPUSH Q4H PRN PRN Reason: Hypertension Last Admin: 08/03/19 14:29 Dose: 20 mg Cefazolin Sodium/Dextrose 2 gm (/ Premix) 50 mls @ 100 mls/hr IV Q8H [facility] Stop: 08/04/19 08:59 Last Admin: 08/03/19 23:38 Dose: 100 mls/hr Nicardipine HCl 25 mg/ Sodium (Chloride) 260 mls @ 52 mls/hr IV TITRATE [facility]; Protocol Ketorolac Tromethamine (Toradol) 15 mg IVPUSH Q6H PRN PRN Reason: Pain Last Admin: 08/03/19 23:36 Dose: 15 mg Levothyroxine Sodium (Levothyroxine) 150 mcg PO ACBREAKFAST [facility] Last Admin: 08/04/19 05:54 Dose: 150 mcg Losartan Potassium (Cozaar) 25 mg PO DAILY [facility] Morphine Sulfate (Morphine) 2 mg IVPUSH Q2H PRN PRN Reason: Breakthrough Pain Naloxone HCl (Narcan) 0.1 mg IVPUSH Q5M PRN PRN Reason: Oversedation Albuterol Sulfate [ (Proair Hfa] Ptom) 2 puff INH QID PRN PRN Reason: asthma Ondansetron HCl (Zofran) 4 mg IVPUSH Q6H PRN PRN Reason: Nausea/Vomiting Last Admin: 08/03/19 17:12 Dose: 4 mg Oxycodone HCl (Oxycodone) 5 - 10 mg PO Q4H PRN PRN Reason: Pain Last Admin: 08/04/19 05:57 Dose: 5 mg Senna (Senna) 8.6 mg PO BID PRN PRN Reason: Constipation Discontinued Medications Acetaminophen (Tylenol) 975 mg PO ONETIME [facility] Stop: 08/03/19 14:00 Last Admin: 08/03/19 10:17 Dose: 975 mg Albuterol (Proventil Neb Soln) 2.5 mg NEB ONETIME PRN PRN Reason: bronchodilation Stop: 08/03/19 18:00 Albuterol (Proventil Neb Soln) Confirm Administered Dose 2.5 mg .ROUTE .STK-MED ONE Stop: 08/03/19 10:03 Last Admin: 08/03/19 10:07 Dose: 2.5 mg Cefazolin Sodium (Ancef) Confirm Administered Dose 2 gm .ROUTE .STK-MED ONE Stop: 08/03/19 08:19 Cefazolin Sodium (Ancef) Confirm Administered Dose 2 gm .ROUTE .STK-MED ONE Stop: 08/03/19 16:19 Clonidine HCl (Catapres) 0.1 mg PO ONETIME ONE Stop: 08/03/19 14:25 Last Admin: 08/03/19 14:36 Dose: 0.1 mg Clonidine HCl (Catapres) 0.1 mg PO ONETIME ONE Stop: 08/03/19 15:29 Last Admin: 08/03/19 18:13 Dose: Not Given Dexamethasone (Dexamethasone) Confirm Administered Dose 20 mg .ROUTE .STK-MED ONE Stop: 08/03/19 11:17 Ephedrine Sulfate (Ephedrine In Ns) Confirm Administered Dose 25 mg .ROUTE .STK- MED ONE Stop: 08/03/19 11:41 Fentanyl (Sublimaze) Confirm Administered Dose 100 mcg .ROUTE .STK-MED ONE Stop: 08/03/19 08:18 Fentanyl (Sublimaze) Confirm Administered Dose 100 mcg .ROUTE .STK-MED ONE Stop: 08/03/19 08:24 Fentanyl (Sublimaze) 50 mcg IVPUSH Q5M PRN PRN Reason: Pain Stop: 08/03/19 18:00 Last Admin: 08/03/19 13:25 Dose: 50 mcg Furosemide (Lasix) 20 mg IVPUSH NOW ONE Stop: 08/03/19 13:49 Last Admin: 08/03/19 16:12 Dose: Not Given Furosemide (Lasix) 20 mg IVPUSH NOW ONE Stop: 08/03/19 14:01 Last Admin: 08/03/19 14:01 Dose: 20 mg Glycopyrrolate () Confirm Administered Dose 1 mg .ROUTE .ST-MED ONE Stop: 08/03/19 12:48 Hydromorphone HCl (Dilaudid) Confirm Administered Dose 0.5 mg .ROUTE .STK-MED ONE Stop: 08/03/19 11:18 Hydromorphone HCl (Dilaudid) 0.5 mg IVPUSH Q10M PRN PRN Reason: Pain (severe 7-10) Stop: 08/03/19 18:00 Last Admin: 08/03/19 13:44 Dose: 0.5 mg Lactated Ringer's (Ringers, Lactated) 1,000 mls @ 125 mls/hr IV ASDIRECTED [facility] Stop: 08/03/19 23:00 Last Admin: 08/03/19 09:10 Dose: 125 mls/hr Lidocaine HCl (Xylocaine-Mpf 1%) Confirm Administered Dose 4 mls @ as directed .ROUTE .STK-MED ONE Stop: 08/03/19 08:19 Lidocaine HCl (Xylocaine-Mpf 1%) Confirm Administered Dose 2 mls @ as directed .ROUTE .STK-MED ONE Stop: 08/03/19 08:20 Lactated Ringer's (Ringers, Lactated) Confirm Administered Dose 1,000 mls @ as directed .ROUTE .STK-MED ONE Stop: 08/03/19 11:56 Lactated Ringer's (Ringers, Lactated) Confirm Administered Dose 1,000 mls @ as directed .ROUTE .[facility]-MED ONE Stop: 08/03/19 12:47 Lactated Ringer's (Ringers, Lactated) 1,000 mls @ 125 mls/hr IV ASDIRECTED BETTE Iodine (Iodine 2% Mild Tincture) Confirm Administered Dose 30 ml .ROUTE .[facility]- [facility] ONE Stop: 08/03/19 16:19 Ketorolac Tromethamine (Toradol) Confirm Administered Dose 30 mg .ROUTE .ST- MED ONE Stop: 08/03/19 12:47 Labetalol HCl (Normodyne) 10 mg IVPUSH ONETIME ONE; Protocol Stop: 08/03/19 13:49 Last Admin: 08/03/19 13:58 Dose: 10 mg Lidocaine/Sodium Bicarbonate (Buffered Lidocaine 1% In Ns 8.4%) 0.25 ml IDERM ONETIME PRN PRN Reason: Prior to IV Start Stop: 08/03/19 18:00 Last Admin: 08/03/19 09:10 Dose: 0.25 ml Magnesium Hydroxide (Milk Of Magnesia) 30 ml PO BID PRN PRN Reason: Constipation Midazolam HCl (Versed 1 Mg/Ml) Confirm Administered Dose 2 mg .ROUTE .[facility] ONE Stop: 08/03/19 08:18 Ondansetron HCl (Zofran) 4 mg IVPUSH Q6H PRN PRN Reason: Nausea/Vomiting Ondansetron HCl (Zofran) Confirm Administered Dose 4 mg .ROUTE .[facility] ONE Stop: 08/03/19 08:18 Ondansetron HCl (Zofran) 4 mg IVPUSH ONETIME PRN PRN Reason: Nausea/Vomiting Stop: 08/03/19 18:00 Oxycodone HCl (Oxycontin) 10 mg PO ONETIME [facility] Stop: 08/03/19 14:00 Last Admin: 08/03/19 10:17 Dose: 10 mg Oxycodone/Acetaminophen (Percocet 325-5 Mg) 1 - 2 tab PO Q4H PRN PRN Reason: Pain Pregabalin (Lyrica) 50 mg PO ONETIME [facility] Stop: 08/03/19 14:00 Last Admin: 08/03/19 10:17 Dose: 50 mg Propofol (Diprivan 20 Ml) Confirm Administered Dose 200 mg .ROUTE .STK-MED ONE Stop: 08/03/19 08:18 Propofol (Diprivan 20 Ml) Confirm Administered Dose 200 mg .ROUTE .STK-MED ONE Stop: 08/03/19 10:58 Rocuronium [place] (Zemuron) Confirm Administered Dose 50 mg .ROUTE .STK-MED ONE Stop: 08/03/19 08:18 Sodium Chloride (Saline Flush) 10 ml FLUSH ASDIRECTED PRN PRN Reason: Keep Vein Open Stop: 08/03/19 18:00 Tranexamic Acid (Cyklokapron) Confirm Administered Dose 1,000 mg .ROUTE .STK- MED ONE Stop: 08/03/19 16:19 Vancomycin HCl (Vancomycin) Confirm Administered Dose 1 gm .ROUTE .STK-MED ONE Stop: 08/03/19 16:19 - Exam Wound/Incisions: Dressing Dry and Intact General: Alert, Cooperative, No Acute Distress Lungs: Normal Respiratory Effort Extremities: Other (NVS intact for BUE. ) Sepsis Event Note - Evaluation Sepsis Screening Result: No Definite Risk - Focused Exam Vital Signs: Vital Signs Temp Pulse Resp BP Pulse Ox Pulse Ox 08/04/19 04:00 98.2 F 93 12 111/76 91 L 08/04/19 00:00 99.1 F 98 12 133/91 H 92 L 08/03/19 20:45 94 L Date Exam was Performed: 08/04/19 Time Exam was Performed: 08:13 - Problem List Review Problem List Initiated/Reviewed/Updated: Yes - My Orders Last 24 Hours: Active Orders 24 hr Category Date Time Status Patient Status [ADT] Routine ADT 08/04/19 07:57 Active Communication Order [RC] ASDIRECTED Care 08/04/19 08:12 Ordered Cooling Warming Measures [RC] ASDIRECTED Care 08/03/19 12:04 Inactive Pulse Oximetry [RC] ASDIRECTED Care 08/03/19 12:04 Active RT Aerosol Therapy [RC] ASDIRECTED Care 08/03/19 15:15 Active Vital Signs [RC] Q15M Care 08/03/19 12:04 Inactive Regular Diet [DIET] Diet 08/03/19 Lunch Active Albuterol Sulfate [Proair Hfa] Med 08/03/19 12:53 Active 2 puff INH QID PRN Albuterol/Ipratropium [DuoNeb 3.0-0.5 MG/3 ML] Med 08/03/19 15:15 Active 3 ml NEB Q6HRRT PRN Aspirin [Ecotrin] Med 08/04/19 09:00 Active 325 mg PO DAILY Cholecalciferol (Vitamin D3) [Vitamin D3] Med 08/04/19 09:00 Active 5,000 unit PO DAILY Docusate Sodium [Colace] Med 08/03/19 21:00 Active 100 mg PO BID Famotidine [Pepcid] Med 08/03/19 21:00 Active 20 mg PO Q12H Ketorolac [Toradol] Med 08/03/19 15:00 Active 15 mg IVPUSH Q6H PRN Levothyroxine Med 08/04/19 06:00 Active 150 mcg PO ACBREAKFAST Losartan [Cozaar] Med 08/04/19 09:00 Ordered 25 mg PO DAILY Ondansetron [Zofran] Med 08/03/19 17:04 Active 4 mg IVPUSH Q6H PRN amLODIPine [Norvasc] Med 08/04/19 09:00 Ordered 5 mg PO DAILY ceFAZolin [Ancef] 2 gm Med 08/03/19 16:30 Active Premix Bag 1 bag IV Q8H hydrALAZINE [Apresoline] Med 08/03/19 14:05 Active 20 mg IVPUSH Q4H PRN niCARdipine HCl [Nicardipine HCl] 25 mg Med 08/03/19 14:30 Active Sodium Chloride 0.9% [Normal Saline] 250 ml IV TITRATE Medication Orders Albuterol/Ipratropium (Duoneb 3.0-0.5 Mg/3 Ml) 3 ml NEB Q6HRRT PRN PRN Reason: wheezing/SOB/cough Amlodipine Besylate (Norvasc) 5 mg PO DAILY [facility] Aspirin (Ecotrin) 325 mg PO DAILY [facility] Bisacodyl (Dulcolax) 5 mg PO DAILY PRN PRN Reason: Constipation Cholecalciferol (Vitamin D3) 5,000 unit PO DAILY [facility] Cyclobenzaprine HCl (Flexeril) 10 mg PO TID PRN PRN Reason: Spasms Last Admin: 08/04/19 00:21 Dose: 10 mg Docusate Sodium (Colace) 100 mg PO BID [facility] Last Admin: 08/03/19 22:15 Dose: 100 mg Famotidine (Pepcid) 20 mg PO Q12H [facility] Last Admin: 08/03/19 22:15 Dose: 20 mg Hydralazine HCl (Apresoline) 20 mg IVPUSH Q4H PRN PRN Reason: Hypertension Last Admin: 08/03/19 14:29 Dose: 20 mg Cefazolin Sodium/Dextrose 2 gm (/ Premix) 50 mls @ 100 mls/hr IV Q8H [facility] Stop: 08/04/19 08:59 Last Admin: 08/03/19 23:38 Dose: 100 mls/hr Infusion: 08/03/19 17:07 Dose: 100 mls/hr Admin: 08/03/19 16:37 Dose: 100 mls/hr Nicardipine HCl 25 mg/ Sodium (Chloride) 260 mls @ 52 mls/hr IV TITRATE [facility]; Protocol Ketorolac Tromethamine (Toradol) 15 mg IVPUSH Q6H PRN PRN Reason: Pain Last Admin: 08/03/19 23:36 Dose: 15 mg Levothyroxine Sodium (Levothyroxine) 150 mcg PO ACBREAKFAST [facility] Last Admin: 08/04/19 05:54 Dose: 150 mcg Losartan Potassium (Cozaar) 25 mg PO DAILY [facility] Morphine Sulfate (Morphine) 2 mg IVPUSH Q2H PRN PRN Reason: Breakthrough Pain Naloxone HCl (Narcan) 0.1 mg IVPUSH Q5M PRN PRN Reason: Oversedation Albuterol Sulfate [ (Proair Hfa] Ptom) 2 puff INH QID PRN PRN Reason: asthma Ondansetron HCl (Zofran) 4 mg IVPUSH Q6H PRN PRN Reason: Nausea/Vomiting Last Admin: 08/03/19 17:12 Dose: 4 mg Oxycodone HCl (Oxycodone) 5 - 10 mg PO Q4H PRN PRN Reason: Pain Last Admin: 08/04/19 05:57 Dose: 5 mg Admin: 08/04/19 00:22 Dose: 5 mg Senna (Senna) 8.6 mg PO BID PRN PRN Reason: Constipation - Assessment Assessment (Free Text/Narrative):: POD#1 - left reverse TSA - Plan Plan (Free Text/Narrative):: 1. Medical management per Hospitalist service. The pt was transferred to ICU post-op due to HTN. BPs improved and are closely monitored by Hospitalist service. 2. 325mg ASA PO daily. Frequent mobility, TEDs. 3. Discharge to home when medically cleared. 4. Outpatient therapy. 5. Hgb 15.3. The pt's case was discussed with Dr. Solorzano.
[2019-08-04] MEDS: Docusate Sodium 100 MG Cap PO SCH (08:43)
[2019-08-04] MEDS: Famotidine 20 MG Tab PO SCH (08:43)
[2019-08-04] MEDS: ceFAZolin 2 GM in Premix Bag 1 BAG IV SCH (08:44)
[2019-08-04] MEDS ORDERED: Cholecalciferol (Vitamin D3) 5,000 UNIT Tab PO SCH (09:00)
[2019-08-04] MEDS ORDERED: amLODIPine 5 MG Tab PO SCH (09:00)
[2019-08-04] MEDS ORDERED: Aspirin 325 MG Tab.EC PO SCH (09:00)
[2019-08-04] MEDS ORDERED: Losartan 25 MG Tab PO SCH (09:00)
--- NOTE | 2019-08-04 09:00 | PCM48HPAN ---
Post Anesthesia Note - EVALUATION WITHIN 48HRS OF ANESTHETIC Vital Signs in Normal Range: Yes Patient Participated in Evaluation: Yes Respiratory Function Stable: Yes Airway Patent: Yes Cardiovascular Function Stable: Yes Hydration Status Stable: Yes Pain Control Satisfactory: Yes Nausea and Vomiting Control Satisfactory: Yes Mental Status Recovered: Yes Vital Signs: Last Vital Signs Temp 37.1 C 08/04/19 08:00 Pulse 93 08/04/19 04:00 Resp 17 08/04/19 08:00 BP 130/86 08/04/19 08:00 Pulse Ox 95 08/04/19 08:00
--- NOTE | 2019-08-04 13:53 | PCM.OPNOTE ---
- General Post-Op/Procedure Note Date of Surgery/Procedure: 08/03/19 Operative Procedure(s): left reverse total shoulder arthroplasty Pre Op Diagnosis: left shoulder osteoarthrosis Post-Op Diagnosis: Same Anesthesia Technique: General ET Tube, Regional Block Primary Surgeon: Martin Solorzano Anesthesia Provider: Taylor Zhao Inseam Trimming Machine Operator: Karin Daniels Inseam Trimming Machine Operator: Deepa Wilson EBL in mLs: 200 Complications: None Condition: Good Free Text/Narrative:: Intake & Output 08/03/19 08/04/19 08/04/19 22:59 06:59 14:59 Intake Total 50 120 Output Total 800 250 Balance -800 -200 120
--- NOTE | 2019-08-04 14:33 | OR ---
DATE OF OPERATION: 08/03/2019 SURGEON: Martin Solorzano MD OPERATION PERFORMED: Left reverse total shoulder arthroplasty with C-arm fluoroscopy. PREOPERATIVE DIAGNOSIS: Left shoulder osteoarthrosis. POSTOPERATIVE DIAGNOSIS: Left shoulder osteoarthrosis. ANESTHESIA: General endotracheal intubation with regional interscalene block. ANESTHESIA PROVIDER: Taylor Zhao CRNA. ASSISTANTS: Karin Daniels PA-C, and Deepa Wilson LPN. ESTIMATED BLOOD LOSS: 200 mL. COMPLICATIONS: None. CONDITION: Stable. IMPLANTS: 1. Arthrex size 7 humeral stem, 135 degrees, with a +6 liner. 2. Arthrex 36 mm concentric glenoid baseplate. 3. 36 mm +4 glenosphere. DESCRIPTION OF PROCEDURE: The patient was identified in the preoperative holding area. Proper site was marked and identified by the surgeon. The patient was then taken back to the operative theater, where after adequate anesthesia, the patient's left upper extremity was sterilely prepped and draped in the usual sterile fashion. OR time-out was performed. The patient received IV clindamycin. At this time, the patient was placed in reverse Trendelenburg position and standard deltopectoral incision was made. The cephalic vein was identified and was retracted laterally with the deltoid and the deltopectoral interval was found. This was taken down to the clavipectoral fascia, which was incised. The conjoined tendon was retracted medially and the anterior humeral circumflex vessels were ligated. The biceps tendon was then identified and #2 FiberWire was then used for biceps tenodesis just above the pectoralis major tendon. The biceps tendon then had a tenotomy proximal to this and the interval was opened all the way back to the level of the glenoid. The biceps tendon was resected. At this time, a peel down of the subscapularis tendon was done and the humeral head was then dislocated. Neck cut was then completed and found to be adequate. Attention was turned to the glenoid. Posterior and anterior retractors were placed. Circumferential removal of the labrum as well as synovial tissue was then done at this time. Guidepin was placed in roughly a center-center position with roughly 5-degree inferior tilt. The central reamer was then utilized for a 36 baseplate and then the peripheral reamer was utilized and was found to be adequately positioned. The tap was used for the central screw and the glenoid baseplate was then secured into place with the central compression screw and then inferior and superior locking screws were placed. A 36, +4 glenosphere was impacted into place and a central set screw was placed. Attention was turned to the humeral head. At this time, starting with a size 5 broach, I was able to broach up to a size 7, which was found to be rotationally and vertically stable and this was in 30 degrees of retroversion. Trial implants were then placed. A +3 liner was found to be a little bit loose, so we had used a +6. Had adequate gnosticism of tension on the deltoid and conjoined tendon and showed no signs of instability or lift-off. At this time, the size 7 broach was left in place with the trial implants and C-arm fluoroscopy was utilized. There showed no fracture lines and all of the implants were adequately positioned utilizing C- arm fluoroscopy. Trial implants were then removed on the humeral side. The actual implants were constructed on the back table with a +6 liner and they were monoblock impacted into place. The shoulder was then relocated. 1 L of dilute Betadine solution was irrigated through the shoulder along with 3 L of pulse lavage irrigation with Ancef. Topical tranexamic acid and vancomycin powder were applied. The patient had 2-0 Vicryl used subcutaneously and Prineo used for the skin. The patient tolerated the procedure well and sent to PACU in stable condition. MMODAL /[id number]
--- NOTE | 2019-08-08 08:33 | PCM.DCSUM1 ---
Discharge Summary - Hospital Course Brief History: Gary is a 69 yo male who underwent left reverse TSA with Dr. Solorzano on 08-03-2019. The procedure was completed under general anesthesia with regional block. 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 Medical management was provided by the Hospitalist service and the pt's blood pressures were closely monitored and treated. The pt's Hgb on POD#1 was 15.3. On POD#1, 325mg ASA daily was initiated for VTE prophylaxis. SCDs and TEDs were also ordered. A Mepilex dressing was placed at the incision site at the time of surgery and remained clean and dry. The pt participated in P.T. and O.T. and progressed well. On POD#1, the pt was deemed appropriate to discharge to home and will follow-up with his primary care provider regarding HTN. Diagnosis: Stroke: No - Discharge Data Discharge Date: 08/04/19 Discharge Disposition: Home, Self-Care 01 Condition: Good - Referral to Home Health Primary Care Physician: Abdirahman Kelley MD - Patient Summary/Data Operative Procedure(s) Performed: left reverse total shoulder arthroplasty Consults: Consultations 08/03/19 07:02 OT Evaluation and Treatment [CONS] Routine PT Evaluation and Treatment [CONS] Routine 08/03/19 07:04 Consult to Physician [CONS] Routine - Patient Instructions Diet: Usual Diet as Tolerated Activity: Apply Ice, As Tolerated, Elevate Extremity Activity, Other: No forceful use of the surgical limb. Driving: Do Not Drive Showering/Bathing: May Shower Wound/Incision Care: Keep Operative Site/Wound Site Clean and Dry, Do NOT Change Dressing Notify Provider of: Fever, Increased Pain, Swelling and Redness, Drainage, Nausea and/or Vomiting Other/Special Instructions: Please get up and moving around EVERY HOUR while awake. This helps to prevent blood clots. Please have help with mobility as needed. Take a short walk in your home every hour while awake. Please take 325mg aspirin daily. The aspirin is being used for blood clot prevention and not for pain management so please do not miss a dose of the medication. You could use a medication like Pepcid or Tagamet and a medication like Prilosec or Nexium to protect your stomach while you are using the aspirin. At home, please complete the exercises that you learned during the Hospital stay. Schedule for physical or occupational therapy. Use the pain medication as needed. The medication may cause drowsiness and constipation. Contact your primary care provider for instructions if you are constipated. You may use a stool softener like docusate sodium or Colace 100mg twice daily and/or a laxative like Miralax daily for constipation. Increase your water and fiber intake while you are using the pain medication. Discontinue use of the pain medication as soon as able. Please do not use other medications that may cause drowsiness (other pain medications, anxiety pills, cold medications, sleeping pills, etc) while using the prescription pain medication. Do not use alcohol while using the pain medication. Wear the SHANTAL hose during the day and you may remove these at night. Elevate the limb to decrease swelling. Place ice to the area often. Place a towel between your skin and the blue pad. Use the incentive spirometer often. Take deep breaths throughout the day. Please keep the dressing in place until follow-up. Notify the Clinic if the dressing becomes saturated. Increase your protein intake while you are healing. Call the Clinic with questions or concerns - [phone]. Follow-up with your primary care provider within 7-10 days of discharge, sooner if needed. Obtain a blood pressure cuff from [employer], your local pharmacy, etc. Take your blood pressure twice a day at random times. Record the date, time, and blood pressure reading in a journal and bring this with to all medical appointments. - Discharge Plan *PRESCRIPTION DRUG MONITORING PROGRAM REVIEWED*: No *COPY OF PRESCRIPTION DRUG MONITORING REPORT IN PATIENT ALBARO: No Prescriptions/Med Rec: Aspirin [Ecotrin EC] 325 mg PO DAILY #40 tab.ec Cyclobenzaprine [Flexeril] 10 mg PO BID PRN #30 tablet PRN Reason: Spasms Losartan [Cozaar] 25 mg PO DAILY #30 tablet oxyCODONE 5 - 10 mg PO Q4H PRN #60 tablet PRN Reason: Pain Home Medications: Home Meds Albuterol Sulfate [Proair Hfa] 2 puff INH QID PRN 08/02/19 [History] Cholecalciferol (Vitamin D3) [Vitamin D3] 5,000 unit PO DAILY 08/02/19 [History] Levothyroxine Sodium [Synthroid] 150 mcg PO DAILY 08/02/19 [History] Aspirin [Ecotrin EC] 325 mg PO DAILY #40 tab.ec 08/04/19 [Rx] Cyclobenzaprine [Flexeril] 10 mg PO BID PRN #30 tablet 08/04/19 [Rx] Docusate Sodium [Colace] 100 mg PO BID cap 08/04/19 [Rx] Famotidine [Pepcid] 20 mg PO Q12H tablet 08/04/19 [Rx] Losartan [Cozaar] 25 mg PO DAILY #30 tablet 08/04/19 [Rx] Sennosides [Senna] 8.6 mg PO BID PRN tablet 08/04/19 [Rx] bisacodyL [Dulcolax] 5 mg PO DAILY PRN tablet 08/04/19 [Rx] oxyCODONE 5 - 10 mg PO Q4H PRN #60 tablet 08/04/19 [Rx] Oxygen Therapy Mode: Room Air Referrals: Karin Daniels PA-C [Physician [facility]] - - Discharge Summary/Plan Comment DC Time >30 min.: No - Patient Data Vitals - Most Recent: Last Vital Signs Temp 98.1 F 08/04/19 12:03 Pulse 90 08/04/19 12:03 Resp 14 08/04/19 12:03 BP 130/82 08/04/19 12:28 Pulse Ox 94 L 08/04/19 12:03 Weight - Most Recent: 223 lb 6.4 oz Med Orders - Current: Current Medications Discontinued Medications Acetaminophen (Tylenol) 975 mg PO ONETIME BETTE Stop: 08/03/19 14:00 Last Admin: 08/03/19 10:17 Dose: 975 mg Albuterol (Proventil Neb Soln) 2.5 mg NEB ONETIME PRN PRN Reason: bronchodilation Stop: 08/03/19 18:00 Albuterol (Proventil Neb Soln) Confirm Administered Dose 2.5 mg .ROUTE .STK-MED ONE Stop: 08/03/19 10:03 Last Admin: 08/03/19 10:07 Dose: 2.5 mg Albuterol/Ipratropium (Duoneb 3.0-0.5 Mg/3 Ml) 3 ml NEB Q6HRRT PRN PRN Reason: wheezing/SOB/cough Amlodipine Besylate (Norvasc) 5 mg PO DAILY [facility] Last Admin: 08/04/19 09:13 Dose: Not Given Aspirin (Ecotrin) 325 mg PO DAILY [facility] Last Admin: 08/04/19 09:19 Dose: 325 mg Bisacodyl (Dulcolax) 5 mg PO DAILY PRN PRN Reason: Constipation Cefazolin Sodium (Ancef) Confirm Administered Dose 2 gm .ROUTE .STK-MED ONE Stop: 08/03/19 08:19 Last Admin: 08/03/19 12:26 Dose: 2 gm Cefazolin Sodium (Ancef) Confirm Administered Dose 2 gm .ROUTE .STK-MED ONE Stop: 08/03/19 16:19 Cefazolin Sodium (Ancef) Confirm Administered Dose 2 gm .ROUTE .STK-MED ONE Stop: 08/03/19 09:04 Cholecalciferol (Vitamin D3) 5,000 unit PO DAILY [facility] Last Admin: 08/04/19 08:43 Dose: 5,000 unit Clonidine HCl (Catapres) 0.1 mg PO ONETIME ONE Stop: 08/03/19 14:25 Last Admin: 08/03/19 14:36 Dose: 0.1 mg Clonidine HCl (Catapres) 0.1 mg PO ONETIME ONE Stop: 08/03/19 15:29 Last Admin: 08/03/19 18:13 Dose: Not Given Cyclobenzaprine HCl (Flexeril) 10 mg PO TID PRN PRN Reason: Spasms Last Admin: 08/04/19 00:21 Dose: 10 mg Dexamethasone (Dexamethasone) Confirm Administered Dose 20 mg .ROUTE .STK-MED ONE Stop: 08/03/19 11:17 Docusate Sodium (Colace) 100 mg PO BID [facility] Last Admin: 08/04/19 08:43 Dose: 100 mg Ephedrine Sulfate (Ephedrine In Ns) Confirm Administered Dose 25 mg .ROUTE .STK- MED ONE Stop: 08/03/19 11:41 Epinephrine HCl (Adrenalin) Confirm Administered Dose 1 mg .ROUTE .STK-MED ONE Stop: 08/03/19 08:18 Famotidine (Pepcid) 20 mg PO Q12H [facility] Last Admin: 08/04/19 08:43 Dose: 20 mg Fentanyl (Sublimaze) Confirm Administered Dose 100 mcg .ROUTE .STK-MED ONE Stop: 08/03/19 08:18 Fentanyl (Sublimaze) Confirm Administered Dose 100 mcg .ROUTE .STK-MED ONE Stop: 08/03/19 08:24 Fentanyl (Sublimaze) 50 mcg IVPUSH Q5M PRN PRN Reason: Pain Stop: 08/03/19 18:00 Last Admin: 08/03/19 13:25 Dose: 50 mcg Furosemide (Lasix) 20 mg IVPUSH NOW ONE Stop: 08/03/19 13:49 Last Admin: 08/03/19 16:12 Dose: Not Given Furosemide (Lasix) 20 mg IVPUSH NOW ONE Stop: 08/03/19 14:01 Last Admin: 08/03/19 14:01 Dose: 20 mg Glycopyrrolate () Confirm Administered Dose 1 mg .ROUTE .STK-MED ONE Stop: 08/03/19 12:48 Hydralazine HCl (Apresoline) 20 mg IVPUSH Q4H PRN PRN Reason: Hypertension Last Admin: 08/03/19 14:29 Dose: 20 mg Hydromorphone HCl (Dilaudid) Confirm Administered Dose 0.5 mg .ROUTE .ST-MED ONE Stop: 08/03/19 11:18 Hydromorphone HCl (Dilaudid) 0.5 mg IVPUSH Q10M PRN PRN Reason: Pain (severe 7-10) Stop: 08/03/19 18:00 Last Admin: 08/03/19 13:44 Dose: 0.5 mg Lactated Ringer's (Ringers, Lactated) 1,000 mls @ 125 mls/hr IV ASDIRECTED [facility] Stop: 08/03/19 23:00 Last Admin: 08/03/19 09:10 Dose: 125 mls/hr Cefazolin Sodium/Dextrose 2 gm (/ Premix) 50 mls @ 100 mls/hr IV Q8H [facility] Stop: 08/04/19 08:59 Last Admin: 08/04/19 08:44 Dose: 100 mls/hr Lidocaine HCl (Xylocaine-Mpf 1%) Confirm Administered Dose 4 mls @ as directed .ROUTE .STK-MED ONE Stop: 08/03/19 08:19 Lidocaine HCl (Xylocaine-Mpf 1%) Confirm Administered Dose 2 mls @ as directed .ROUTE .STK-MED ONE Stop: 08/03/19 08:20 Lactated Ringer's (Ringers, Lactated) Confirm Administered Dose 1,000 mls @ as directed .ROUTE .[facility]-MED ONE Stop: 08/03/19 11:56 Lactated Ringer's (Ringers, Lactated) Confirm Administered Dose 1,000 mls @ as directed .ROUTE .[facility] ONE Stop: 08/03/19 12:47 Nicardipine HCl 25 mg/ Sodium (Chloride) 260 mls @ 52 mls/hr IV TITRATE BETTE; Protocol Lactated Ringer's (Ringers, Lactated) 1,000 mls @ 125 mls/hr IV ASDIRECTED BETTE Iodine (Iodine 2% Mild Tincture) Confirm Administered Dose 30 ml .ROUTE .[facility] ONE Stop: 08/03/19 16:19 Last Admin: 08/03/19 12:24 Dose: 18 ml Iodine (Iodine 2% Mild Tincture) Confirm Administered Dose 30 ml .ROUTE .[facility] ONE Stop: 08/03/19 09:05 Ketorolac Tromethamine (Toradol) 15 mg IVPUSH Q6H PRN PRN Reason: Pain Last Admin: 08/03/19 23:36 Dose: 15 mg Ketorolac Tromethamine (Toradol) Confirm Administered Dose 30 mg .ROUTE .[facility] ONE Stop: 08/03/19 12:47 Labetalol HCl (Normodyne) 10 mg IVPUSH ONETIME ONE; Protocol Stop: 08/03/19 13:49 Last Admin: 08/03/19 13:58 Dose: 10 mg Levothyroxine Sodium (Levothyroxine) 150 mcg PO ACBREAKFAST [facility] Last Admin: 08/04/19 05:54 Dose: 150 mcg Lidocaine/Sodium Bicarbonate (Buffered Lidocaine 1% In Ns 8.4%) 0.25 ml IDERM ONETIME PRN PRN Reason: Prior to IV Start Stop: 08/03/19 18:00 Last Admin: 08/03/19 09:10 Dose: 0.25 ml Losartan Potassium (Cozaar) 25 mg PO DAILY [facility] Last Admin: 08/04/19 09:16 Dose: 25 mg Magnesium Hydroxide (Milk Of Magnesia) 30 ml PO BID PRN PRN Reason: Constipation Midazolam HCl (Versed 1 Mg/Ml) Confirm Administered Dose 2 mg .ROUTE .[facility]-MED ONE Stop: 08/03/19 08:18 Morphine Sulfate (Morphine) 2 mg IVPUSH Q2H PRN PRN Reason: Breakthrough Pain Naloxone HCl (Narcan) 0.1 mg IVPUSH Q5M PRN PRN Reason: Oversedation Albuterol Sulfate [ (Proair Hfa] Ptom) 2 puff INH QID PRN PRN Reason: asthma Ondansetron HCl (Zofran) 4 mg IVPUSH Q6H PRN PRN Reason: Nausea/Vomiting Ondansetron HCl (Zofran) Confirm Administered Dose 4 mg .ROUTE .STK-MED ONE Stop: 08/03/19 08:18 Ondansetron HCl (Zofran) 4 mg IVPUSH ONETIME PRN PRN Reason: Nausea/Vomiting Stop: 08/03/19 18:00 Ondansetron HCl (Zofran) 4 mg IVPUSH Q6H PRN PRN Reason: Nausea/Vomiting Last Admin: 08/03/19 17:12 Dose: 4 mg Oxycodone HCl (Oxycontin) 10 mg PO ONETIME [facility] Stop: 08/03/19 14:00 Last Admin: 08/03/19 10:17 Dose: 10 mg Oxycodone HCl (Oxycodone) 5 - 10 mg PO Q4H PRN PRN Reason: Pain Last Admin: 08/04/19 12:04 Dose: 5 mg Oxycodone/Acetaminophen (Percocet 325-5 Mg) 1 - 2 tab PO Q4H PRN PRN Reason: Pain Pregabalin (Lyrica) 50 mg PO ONETIME [facility] Stop: 08/03/19 14:00 Last Admin: 08/03/19 10:17 Dose: 50 mg Propofol (Diprivan 20 Ml) Confirm Administered Dose 200 mg .ROUTE .STK-MED ONE Stop: 08/03/19 08:18 Propofol (Diprivan 20 Ml) Confirm Administered Dose 200 mg .ROUTE .STK-MED ONE Stop: 08/03/19 10:58 Rocuronium [place] (Zemuron) Confirm Administered Dose 50 mg .ROUTE .STK-MED ONE Stop: 08/03/19 08:18 Ropivacaine (Naropin 0.5%) Confirm Administered Dose 30 ml .ROUTE .STK-MED ONE Stop: 08/03/19 08:19 Senna (Senna) 8.6 mg PO BID PRN PRN Reason: Constipation Sodium Chloride (Saline Flush) 10 ml FLUSH ASDIRECTED PRN PRN Reason: Keep Vein Open Stop: 08/03/19 18:00 Tranexamic Acid (Cyklokapron) Confirm Administered Dose 1,000 mg .ROUTE .STK- MED ONE Stop: 08/03/19 16:19 Last Admin: 08/03/19 12:30 Dose: 1,000 mg Tranexamic Acid (Cyklokapron) Confirm Administered Dose 1,000 mg .ROUTE .STK- MED ONE Stop: 08/03/19 09:04 Vancomycin HCl (Vancomycin) Confirm Administered Dose 1 gm .ROUTE .STK-MED ONE Stop: 08/03/19 16:19 Last Admin: 08/03/19 12:31 Dose: 1 gm Vancomycin HCl (Vancomycin) Confirm Administered Dose 1 gm .ROUTE .STK-MED ONE Stop: 08/03/19 09:04
== END 2019-08-04 13:02 | disposition home or self-care (01) | DRG 483 ==
LOC: JD.MS 08:14 → JD.ICU 14:43
PROVIDERS: ADMIT Orthopaedic Surgery; ATTEND Orthopaedic Surgery
PROC: 0RRK00Z Replacement of Left Shoulder Joint with Reverse Ball and Socket Synthetic Substitute, Open Approach (ICD-10-PCS; principal; 2019-08-03)
DX: M19.012 Primary osteoarthritis, left shoulder (principal); I10 Essential (primary) hypertension; H54.7 Unspecified visual loss; E03.9 Hypothyroidism, unspecified; E78.5 Hyperlipidemia, unspecified; I97.3 Postprocedural hypertension; J44.9 Chronic obstructive pulmonary disease, unspecified; D75.1 Secondary polycythemia; N52.9 Male erectile dysfunction, unspecified; Z99.81 Dependence on supplemental oxygen; Z87.891 Personal history of nicotine dependence; Z98.49 Cataract extraction status, unspecified eye; Z79.51 Long term (current) use of inhaled steroids; Z79.899 Other long term (current) drug therapy; Z85.46 Personal history of malignant neoplasm of prostate; Z88.0 Allergy status to penicillin
CPT/HCPCS: 01638; 36415; 64415; 73020-26-LT; 73020-LT; 76000; 76000-26; 80053; 85027; 87641; 94640; 97110-GP; 97116-GP; 97161-GP; 97165-GO; 97535-GO; 99222; 99232; A9270-GY; C1713; C1776; J0171; J0360; J0690; J1100; J1170; J1885; J2001; J2250; J2405; J2704; J2795; J3010; J3370; J3490; J7050; J7120